=== PATIENT | male | born 1955 | race Caucasian/White ===

== ENCOUNTER 2016-10-04 10:07 | Emergency (ER) | payer MEDICAID | END 2016-10-04 12:35 | disposition home or self-care (01) | LOC: D.ER 10:07 | DX: S39.012A Strain of muscle, fascia and tendon of lower back, initial encounter (principal); X58.XXXA Exposure to other specified factors, initial encounter; Y93.89 Activity, other specified; Y92.89 Other specified places as the place of occurrence of the external cause; M51.36 Other intervertebral disc degeneration, lumbar region ==

== ENCOUNTER 2016-12-07 11:01 | Emergency (ER) | payer MEDICAID | END 2016-12-07 11:28 | disposition home or self-care (01) | LOC: D.ER 11:01 | DX: Z76.0 Encounter for issue of repeat prescription (principal); M51.36 Other intervertebral disc degeneration, lumbar region ==

== ENCOUNTER 2017-12-02 17:41 | Emergency (ER) | payer MEDICAID ==
[~2017-12-02] VITALS: Ht 185.4 cm; Wt 102.3 kg
[2017-12-02 17:53] VITALS: Ht 185.4 cm; Wt 102.3 kg
[2017-12-02] MEDS ORDERED: NEURONTIN800 MG PO (17:56)
[2017-12-02] MEDS ORDERED: SEROQUEL25 MG PO (17:56)
[2017-12-02] MEDS ORDERED: XANAX2 MG PO (17:56)
[2017-12-02 20:46] VITALS: BP 131/79
== END 2017-12-02 20:47 | disposition home or self-care (01) ==
LOC: D.ER 17:41
DX: M54.5 Low back pain (principal); F17.200 Nicotine dependence, unspecified, uncomplicated

== ENCOUNTER 2018-02-23 18:22 | Emergency (ER) | payer MEDICAID ==
[~2018-02-23] VITALS: Ht 185.4 cm; Wt 102.3 kg
[~2018-02-23 18:22] MED LIST: NEURONTIN800 MG PO; SEROQUEL25 MG PO; XANAX2 MG PO
[2018-02-23 18:23] VITALS: Ht 185.4 cm; Wt 102.3 kg
[2018-02-23] MEDS ORDERED: EC-NAPROSYN500 MG PO (19:49)
[2018-02-23 20:11] VITALS: BP 115/76
== END 2018-02-23 20:12 | disposition home or self-care (01) ==
LOC: D.ER 18:22
DX: M54.5 Low back pain (principal); Z86.69 Personal history of other diseases of the nervous system and sense organs

== ENCOUNTER 2018-04-07 13:42 | Emergency (ER) | payer MEDICAID ==
[2018-02-23 18:23] VITALS: Ht 185.4 cm; Wt 90.7 kg
[~2018-04-07] VITALS: Ht 185.4 cm; Wt 90.7 kg
[~2018-04-07 13:42] MED LIST changes: +EC-NAPROSYN500 MG PO
[2018-04-07] MEDS ORDERED: ROBAXIN500 MG PO (17:19)
[2018-04-07] MEDS ORDERED: EC-NAPROSYN500 MG PO (17:19)
[2018-04-07 18:04] VITALS: BP 129/71
== END 2018-04-07 17:43 | disposition home or self-care (01) ==
LOC: D.ER 13:42
DX: M25.511 Pain in right shoulder (principal)